=== PATIENT | female | born 1990 | race Caucasian/White ===

== ENCOUNTER 2018-01-26 10:04 | Emergency (ER) | payer OTHER ==
[~2018-01-26] VITALS: Ht 167.6 cm; Wt 70.3 kg
--- NOTE | ~2018-01-26 | EKG ---
[address] [place] [address] ELECTROCARDIOGRAM REPORT Name: HORACIO GUNN Room #: DEP Morris#: [id number] Admission: 01/26/18 Attend Phys: Discharge: 01/26/18 Date of : 86 Report #: [id number] THIS REPORT FOR: //name// [facility] ED Test Date: 2018-01-26 Test Time: 10:16:03 Pat Name: HORACIO GUNN Department: Room: Gender: F Header Operator: GERALD : 1990 Requested By: Asim Tapia Order Number: [id number] MD: Carlos A Quinn Measurements Intervals Ivel Rate: 49 P: 36 NM: 153 QRS: 47 QRSD: 88 T: 12 QT: 453 QTc: 409 Interpretive Statements Sinus bradycardia Baseline wander in lead(s) V1 No previous ECG available for comparison Electronically Signed On 01-27-2018 9:01:31 CDT by Carlos A Quinn [email or web address] <ELECTRONICALLY SIGNED> By: Carlos A Quinn MD, [facility] 01/27/18 0901 [id number] Carlos A Quinn MD, FAC /EPI
[2018-01-26] MEDS ORDERED: L-LYSINE500 M1 PO (10:13)
[2018-01-26] MEDS ORDERED: PRENATAL PO (10:13)
[2018-01-26 11:32] LABS: ABSOLUTE NEUTROPHILS 3.8 thou/uL (1.4-8.2); BASOPHILS 0.7 % (0.0-2.0); EOSINOPHILS 1.4 % (0.0-3.0); HEMATOCRIT 40.1 % (37.0-47.0); HEMOGLOBIN 13.7 gm/dL (12.0-15.0); LYMPHOCYTES 21.2 % (24.0-44.0); MCH 32.2 pg (26.0-34.0); MCHC 34.2 g/dL (28.0-37.0); MCV 94.2 fL (80.0-100.0); MONOCYTES 10.7 % (1.0-8.0); PLATELET COUNT 226 thou/uL (150-400); RBC 4.26 mil/uL (4.20-5.00); RDW 12.7 % (10.5-14.5); WBC 5.8 thou/uL (4.0-11.0)
[2018-01-26 11:50] LABS: BUN 12 mg/dL (7-18); CALCIUM 9.4 mg/dL (8.5-10.1); CO2 27 mmol/L (21-32); CREATININE 0.7 mg/dL (0.6-1.0); GLUCOSE 89 mg/dL (74-106); SGOT 35 U/L (15-37); SGPT 55 U/L (30-65); TOTAL PROTEIN 7.6 g/dL (6.4-8.2); TROPONIN-I < 0.04 ng/mL (<0.06)
[2018-01-26 12:07] LABS: ANION GAP 8 mmol/L (7-16); CHLORIDE 101 mmol/L (98-107); POTASSIUM 3.6 mmol/L (3.5-5.1); SODIUM 136 mmol/L (136-145)
[2018-01-26 16:33] VITALS: BP 108/60
== END 2018-01-26 16:34 | disposition short-term general hospital (02) ==
LOC: ER 10:04
PROVIDERS: Emergency Medicine
DX: O26.891 Other specified pregnancy related conditions, first trimester (principal); S01.01XA Laceration without foreign body of scalp, initial encounter; R55 Syncope and collapse; R00.1 Bradycardia, unspecified; Z3A.09 9 weeks gestation of pregnancy; X58.XXXA Exposure to other specified factors, initial encounter; Y93.89 Activity, other specified; Y92.89 Other specified places as the place of occurrence of the external cause; Y99.8 Other external cause status